=== PATIENT | male | born 2000 | race African-American/Black ===

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

== ENCOUNTER 2022-08-28 22:47 | Emergency (ER) | payer MEDICAID ==
[~2022-08-28] VITALS: Ht 167.6 cm; Wt 79.0 kg
[~2022-08-28 22:47] MED LIST changes: +NORTRIPTYLIN25 MG PO
[2022-08-28 22:55] VITALS: BP 125/69
[2022-08-28 23:00] VITALS: BP 136/87
[2022-08-28 23:15] VITALS: BP 119/84
[2022-08-28 23:30] VITALS: BP 124/65
[2022-08-28 23:45] VITALS: BP 120/80
[2022-08-29 00:15] VITALS: BP 126/86
[2022-08-29 00:30] VITALS: BP 133/86
[2022-08-29 00:45] VITALS: BP 143/86
[2022-08-29] MEDS ORDERED: NAPROXEN500 MG PO (00:51)
[2022-08-29 01:01] VITALS: BP 118/64
[2022-08-29 01:16] VITALS: BP 132/74
[2022-08-29 01:30] VITALS: BP 128/86
== END 2022-08-29 01:45 | disposition home or self-care (01) ==
LOC: ED 22:47
DX: S01.01XA Laceration without foreign body of scalp, initial encounter (principal); F17.200 Nicotine dependence, unspecified, uncomplicated; Y00.XXXA Assault by blunt object, initial encounter

== ENCOUNTER → 2022-09-15 | Emergency (ER) | payer MEDICAID ==
[~2022-09-15] MED LIST changes: +NAPROXEN500 MG PO
== END | disposition left against medical advice (07) ==
LOC: ED 19:27 → LWOBS 20:34
DX: Z53.21 Procedure and treatment not carried out due to patient leaving prior to being seen by health care provider (principal)

== ENCOUNTER 2023-04-22 04:25 | Emergency (ER) | payer OTHER, MEDICAID ==
[~2023-04-22] VITALS: Ht 167.6 cm; Wt 79.5 kg
[2023-04-22 05:18] VITALS: BP 125/84
== END 2023-04-22 05:23 | disposition home or self-care (01) | DRG 605 ==
LOC: ED 04:25
PROC: 0HQDXZZ Repair Right Lower Arm Skin, External Approach (ICD-10-PCS; principal; 2023-04-22)
DX: S51.811A Laceration without foreign body of right forearm, initial encounter (principal); W25.XXXA Contact with sharp glass, initial encounter

== ENCOUNTER 2023-06-03 07:54 | Emergency (ER) | payer MEDICAID ==
[~2023-06-03] VITALS: Ht 167.6 cm; Wt 72.5 kg
[2023-06-03 08:00] VITALS: BP 124/80
[2023-06-03 08:16] VITALS: BP 107/81
[2023-06-03] MEDS ORDERED: NAPROXEN500 MG PO (10:01)
[2023-06-03] MEDS ORDERED: FLEXERIL5 M1 PO (10:01)
[2023-06-03 10:12] VITALS: BP 123/71
[2023-06-03 10:13] VITALS: BP 123/71
== END 2023-06-03 10:16 | disposition home or self-care (01) ==
LOC: ED 07:54
DX: M54.50 Low back pain, unspecified (principal); F17.200 Nicotine dependence, unspecified, uncomplicated